=== PATIENT | female | born 1965 | race Caucasian/White ===

== ENCOUNTER 2021-03-31 19:01 | Emergency (ER) | payer BC ==
[~2021-03-31] VITALS: Ht 160 cm; Wt 93.9 kg
[2021-03-31 20:12] LABS: BASOPHILS ABSOLUTE AUTO 0.02 K/mm3 (0.00-0.23); BASOPHILS PERCENT AUTO 0 % (0-2); EOSINOPHILS ABSOLUTE AUTO 0.13 K/mm3 (0.00-0.68); EOSINOPHILS PERCENT AUTO 2 % (0-6); Hematocrit 40.4 % (33.0-51.0); Hemoglobin 13.2 g/dL (11.5-16.0); IMMATURE GRAN ABSOLUTE AUTO 0.03 K/mm3 (0.00-0.10); IMMATURE GRAN PERCENT AUTO 0 % (0-1); LYMPHOCYTES ABSOLUTE AUTO 2.29 K/mm3 (0.84-5.20); LYMPHOCYTES PERCENT AUTO 30 % (21-46); MONOCYTES ABSOLUTE AUTO 0.57 K/mm3 (0.16-1.47); MONOCYTES PERCENT AUTO 8 % (4-13); Mean Corpuscular HGB 28.6 pg (26.0-34.0); Mean Corpuscular HGB Conc 32.7 g/dL (31.5-36.5); Mean Corpuscular Volume 88 fL (80-100); Mean Platelet Volume 10.6 fL (9.1-12.4); NEUTROPHILS ABSOLUTE AUTO 4.57 K/mm3 (1.96-9.15); NEUTROPHILS PERCENT AUTO 60 % (41-73); Platelet Count 216 K/mm3 (150-400); RDW Coefficient Variation 13.1 % (11.7-14.2); RDW Standard Deviation 41.9 fL (35.1-46.3); Red Blood Cell Count 4.61 M/mm3 (3.80-5.20); White Blood Cell Count 7.61 K/mm3 (4.00-11.30)
[2021-03-31 20:32] LABS: Alanine Aminotransfer (ALT/SGP 27 U/L (12-78); Albumin, Blood 3.8 g/dL (3.4-5.0); Albumin/Globulin Ratio 1.2 (0.8-1.8); Alk Phos 54 U/L (50-136); Anion Gap 4 mmol/L (6-16); Aspartate Aminotrans (AST/SGOT 13 U/L (12-37); Bilirubin, Total 0.2 mg/dL (0.1-1.0); Blood Urea Nitrogen 11 mg/dL (8-24); Bun/Creatinine Ratio 15.5 (12.0-20.0); CO2, Blood 29 mmol/L (21-32); Chloride, Blood 106 mmol/L (98-108); Creatinine, Blood 0.71 mg/dL (0.40-1.00); Globulin, Blood 3.3 g/dL (2.2-4.0); Glomerular Filtration Rate >60 (60-); Glucose, Blood 85 mg/dL (70-99); Potassium, Blood 3.4 mmol/L (3.5-5.5); Sodium, Blood 139 mmol/L (136-145); Total Protein, Blood 7.1 g/dL (6.4-8.2); Troponin I <0.015 ng/mL (0.000-0.040)
[2021-05-08] MEDS ORDERED: MICROZIDE12.5 MG PO (11:25)
[2021-05-08] MEDS ORDERED: ZESTRIL40 M2 PO (11:25)
[2021-05-08] MEDS ORDERED: FLUT1DIS5 INH (11:26)
[2021-05-08] MEDS ORDERED: MULVITA PO (11:26)
[2021-05-08] MEDS ORDERED: ALBU90OI INH (11:26)
[2021-05-08] MEDS ORDERED: VITAMIN D310 MC4 PO (11:27)
[2021-05-08] MEDS ORDERED: FISH OIL 1,2001 EAC7 PO (11:28)
[2021-05-08] MEDS ORDERED: GABA300 PO (11:28)
[2021-05-08] MEDS ORDERED: [UNRECOGNIZED DRUG - OTHER] PO (11:29)
[2021-05-08] MEDS ORDERED: COQ-10100 MG PO (11:29)
== END 2021-03-31 22:43 | disposition home or self-care (01) ==
LOC: ER 19:01
PROVIDERS: Physician Assistant
DX: R07.89 Other chest pain (principal)
CPT/HCPCS: 36415; 71046; 76705; 80053; 83880; 84484; 85025; 93005; 93010; 99284-25; A9270

== ENCOUNTER 2021-05-15 05:55 | Day surgery (SDC) | payer BC ==
[~2021-05-15] VITALS: Ht 162.6 cm; Wt 94.9 kg
[~2021-05-15 05:55] MED LIST: ALBU90OI INH; COQ-10100 MG PO; FISH OIL 1,2001 EAC7 PO; FLUT1DIS5 INH; GABA300 PO; MICROZIDE12.5 MG PO; MULVITA PO; VITAMIN D310 MC4 PO; ZESTRIL40 M2 PO; [UNRECOGNIZED DRUG - OTHER] PO
--- NOTE | 2021-05-15 06:57 | NUR ---
History, Chart, Medications and Allergies reviewed before start of procedure. Lungs clear T/O to Auscultation. Patient confirms NPO status and agrees with scheduled surgery. Pre-Op teaching done. Pt verbalizes understanding. Patient reports completing Chlorhexadine shower X2 prior to admission to hospital.
--- NOTE | 2021-05-15 09:47 | NUR ---
report from erick molina rn. pt awake and asking for coffee. pt incisions remain intact, cdi.
--- NOTE | 2021-05-15 10:37 | NUR ---
Patient up to Ambulate independently. Gait steady. Discharge instructions reviewed with patient. Patient verbalizes understanding. Copy given to patient to take home. Patient States Post-Procedure ride home has been arranged. Discharged via wheelchair to private car for ride home. INCISIONS TO ABD REMAIN CDI. GAVE PATIENT ONE PAIN PILL, 50MCGS FENTANYL AND ZOFRAN 4 MG. WAS TOLERATING PO AT TIME OF DISCHARGE HOME WITHOUT NAUSEA AND PAIN AT A TOLERABLE LEVEL. ALL BELONINGS RETURNED TO PATIENT.
== END 2021-05-15 10:20 | disposition home or self-care (01) ==
LOC: ORSCMMR 05:55 → ORD 07:30 → ORSCMMR 10:20
PROVIDERS: Surgery
PROC: 0FT44ZZ Resection of Gallbladder, Percutaneous Endoscopic Approach (ICD-10-PCS; principal; 2021-05-15 07:30)
PROC: BF031ZZ Plain Radiography of Gallbladder and Bile Ducts using Low Osmolar Contrast (ICD-10-PCS; principal; 2021-05-15 07:30)
DX: K81.1 Chronic cholecystitis (principal); K82.4 Cholesterolosis of gallbladder; I10 Essential (primary) hypertension; K76.0 Fatty (change of) liver, not elsewhere classified; J45.909 Unspecified asthma, uncomplicated; E66.9 Obesity, unspecified; Z68.35 Body mass index [BMI] 35.0-35.9, adult
CPT/HCPCS: 74300; 88304; A9270; C1729; J0690; J1100; J2250; J2405; J2704; J2765; J3010; J7120